=== PATIENT | male | born 1965 | race Caucasian/White ===

== ENCOUNTER 2024-09-28 09:44 | Emergency (ER) | payer OTHER, SELFPAY ==
[2024-09-28] VITALS (20 sets, daily range): BP systolic 122–176; BP diastolic 58–76; PULSE 59–60; RESP 10–19; TEMP 36.4–36.7; O2SAT 94–100; BMI 41.1
--- NOTE | 2024-09-28 09:51 | EKG_ITS ---
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
--- NOTE | 2024-09-28 09:54 | DI.RAD.S_ITS ---
PROCEDURE: XR CHEST 1V INDICATIONS: chest pain TECHNIQUE: One view of the chest was acquired. COMPARISON: None. FINDINGS: Surgical changes and devices: Left pacemaker with the leads terminating in the projection of the right atrium and coronary sinus. Partially identified cervical fusion hardware. Lungs and pleura: Lungs are clear. No pleural effusions or pneumothorax. Mediastinum: Mediastinal contours appear normal. Heart size is normal. Bones and chest wall: No suspicious bony lesions. Overlying soft tissues appear unremarkable. IMPRESSION: No acute cardiothoracic process. Dictated by: Randy Morejon M.D. on 09/28/2024 at 9:41 Approved by: Randy Morejon M.D. on 09/28/2024 at 9:41
[2024-09-28] MEDS: ASPIRIN 81 MG CHEW TAB 324 MG PO (10:13)
[2024-09-28 10:14] LABS: Add Manual Diff / Slide Review NO; Basophils Absolute Auto 0 /uL (0-100); Basophils Percent Auto 0.7 % (0-2); Eosinophils Absolute Auto 100 /uL (0-450); Hematocrit 40.7 % (41-53); Hemoglobin 13.8 g/dL (13.5-17.5); Lymphocytes Absolute Auto 1100 /uL (1100-4500); Lymphocytes Percent Auto 21.2 % (25-40); Mean Corpuscular HGB Conc 33.8 % (30-36); Mean Corpuscular Hemoglobin 30.4 PG (26-34); Mean Corpuscular Volume 89.7 fL (80-100); Monocytes Absolute Auto 400 /uL (0-900); Monocytes Percent Auto 7.3 % (3-14); Neutrophils Absolute Auto 3700 /uL (1500-7000); Neutrophils Percent Auto 69.8 % (50-75); Platelet Count 197 X10^3/uL (150-400); Red Blood Cell Count 4.54 X10^6/uL (4.5-5.9); Red Cell Distribution Width 14.3 % (11.6-14.8); White Blood Cell Count 5.3 X10^3/uL (4.5-11.0)
[2024-09-28] MEDS: MORPHINE 4 MG/ML INJ IV ×3 (10:37→16:07)
[2024-09-28 10:38] LABS: Alanine Aminotransferase 28 IU/L (<50); Albumin 4.5 g/dL (3.5-5.0); Albumin Globulin Ratio 1.5 (1.0-2.8); Alkaline Phosphatase 73 U/L (38-126); Aspartate Aminotransferase 36 IU/L (17-59); BUN Creatinine Ratio 23.6 (6-22); Bilirubin Total 0.7 mg/dL (0.2-1.3); Blood Urea Nitrogen 26 mg/dL (9-20); Calcium 9.4 mg/dL (8.4-10.2); Carbon Dioxide 20 mmol/L (22-32); Chloride 107 mmol/L (98-107); Creatine Kinase 139 U/L (55-170); Estimated Glomerular Filt Rate > 60 mL/min (>60); Glucose 108 mg/dL (80-110); HEMOLYSIS 26 (0-50); Lipase 47 U/L (23-300); Potassium 5.2 mmol/L (3.4-5.1); Sodium 137 mmol/L (137-145); Total Protein 7.5 g/dL (6.3-8.2)
[2024-09-28 10:48] LABS: Troponin I < 0.012 ng/mL (0.01-0.034)
--- NOTE | 2024-09-28 11:41 | EKG_ITS ---
[address] [address] Test Date: 2024-09-28 Pat Name: Jeremiah Francisco Department: Room: Gender: Male Intermission Coordinator: CHANTELL : 1965 Requested By: Order Number: [id number] Reading MD: Jeremiah Heller MD Measurements Intervals [place] Rate: 60 P: IN: 276 QRS: -78 QRSD: 118 T: 44 QT: 454 QTc: 454 Interpretive Statements Atrial-paced rhythm with prolonged AV conduction Left anterior fascicular block Possible Anterior infarct , age undetermined Electronically Signed On 09-28-2024 15:04:15 PDT by Jeremiah Heller MD
--- NOTE | 2024-09-28 11:43 | PC.NURSE ---
pt reports CP at this time. repeat EKG obtained. made aware. BP 141/67 and HR 60 paced
--- NOTE | 2024-09-28 12:25 | DI.CT.S_ITS ---
PROCEDURE: CT ANGIO CHEST PE PROTOCOL INDICATIONS: left chest shoulder pain TECHNIQUE: After the administration of intravenous contrast, 2 mm thick sections acquired from the pulmonary apices to the posterior costophrenic angles. 3-dimensional maximum intensity projection (MIP) coronal and sagittal reformats were then acquired through the thorax. For radiation dose reduction, the following was used: automated exposure control, adjustment of mA and/or kV according to patient size. COMPARISON: [facility], CR, XR CHEST 1V, 09/28/2024, 9:55. FINDINGS: Image quality: Diagnostic. Thyroid: Within normal limits. Cardiac: Cardiomegaly. No pericardial effusion. Left pacemaker with the leads terminating in the right atrium right ventricle. RV: LV ratio within normal limits. No bowing of the interventricular septum. No reflux of contrast into the hepatic veins. Left ventricular hypertrophy. Aorta: Thoracic aortic diameter within normal limits. Pulmonary Artery: Main pulmonary artery diameter within normal limits. No filling defect in the pulmonary arteries to the proximal interlobar level. Further distal evaluation is limited due to suboptimal arterial opacification. Lungs: No focal lung consolidation. Pleura: No pneumothorax or pleural effusion. Airways: The trachea and mainstem bronchi are patent. Lymph Nodes: No mediastinal, hilar, or axillary lymphadenopathy. Esophagus: Within normal limits. Bones: Diffuse idiopathic skeletal hyperostosis of the thoracic spine. C6-C7 ACDF. Chronic left posterior 11th and 12th rib fractures. Upper Abdomen: Within normal limits. IMPRESSION: 1. No CT evidence of pulmonary embolism to the proximal interlobar level. 2. Cardiomegaly with left ventricular hypertrophy. Dictated by: Randy Morejon M.D. on 09/28/2024 at 12:45 Approved by: Randy Morejon M.D. on 09/28/2024 at 12:49
[2024-09-28 13:03] LABS: Troponin I < 0.012 ng/mL (0.01-0.034)
--- NOTE | 2024-09-28 14:33 | ED.ARRPALP ---
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 Iraheta known as his primary turnaround engineer. About 2 years ago had AICD placed, subsequent to that placement he had a V-tach event in the AICD device apparently had failed, but was resuscitated by nearby paramedics successfully, subsequent to that event the AICD settings were adjusted, no subsequent shocking events known. He woke this morning with left anterior chest discomfort that radiated to his left upper shoulder. No shocking sensation nor electrical like sensation from his AICD advice. No recent cough, shortness of breath, fevers or chills. No abdominal discomfort, nausea, vomiting. No associated diaphoresis. No focal weakness to face arm or leg. No focal numbness to face arm or leg. No change in medications recalled. No history of blood clots to legs or lungs. However he has also been taking Xarelto chronic anticoagulation for many years. Denies black or red stools. Related Data Previous Rx's Medication Instructions Recorded hydrocodone 5 mg-acetaminophen 325 1 tab PO Q6H PRN pain #14 tabs 09/28/24 mg tablet Allergies Allergy/AdvReac Type Severity Reaction Status Date / Time fentanyl AdvReac Agitated Verified 09/28/24 10:00 Patient History Social History Smoking Status: Never smoker Smoking Status: Never smoker Exam Narrative Exam Narrative: GENERAL: Well-developed patient, in mild distress. HEAD: Atraumatic. Normocephalic. EYES: Pupils equal round and reactive. Extraocular motions intact. No scleral icterus. No injection or drainage. ENT: Nose without bleeding, purulent drainage. Throat without erythema, tonsillar hypertrophy or exudate. Airway patent. NECK: Trachea midline. Non tender CARDIOVASCULAR: Regular rate and rhythm without murmurs, gallops, or rubs. RESPIRATORY: Clear to auscultation. Breath sounds equal bilaterally. No wheezes, rales, or rhonchi. Left anterior upper chest AICD site, well-healed scar, no crepitance or redness or swelling. No tenderness to left anterior chest. GASTROINTESTINAL: Abdomen soft, non-tender, nondistended. EXTREMITIES: No edema or joint tenderness. BACK: Nontender without deformity or crepitance. No flank tenderness. NEURO: AOx3. Motor functions grossly nonfocal SKIN: No rash or erythema of visible areas Initial Vital Signs Initial Vital Signs: Vital Signs Temperature 98.1 F 09/28/24 09:57 Pulse Rate 60 09/28/24 09:57 Respiratory Rate 19 09/28/24 09:57 Blood Pressure 171/73 H 09/28/24 09:57 Pulse Oximetry 100 09/28/24 09:57 Oxygen Delivery Method Room Air 09/28/24 09:57 Course Orders Ordered: ED Orders 09/28/24 12:25 CT angio chest PE protocol Stat 09/28/24 12:29 Trop I [Troponin I] Stat 09/28/24 13:25 EKG-12 Lead Stat 09/28/24 16:42 Potassium Stat Discontinued Medications Aspirin (Aspirin 81 Mg Chew Tab) 324 mg PO NOW ONE Stop: 09/28/24 09:55 Last Admin: 09/28/24 10:13 Dose: 324 mg Documented By: POPPY Ketorolac Tromethamine (Ketorolac 30 Mg/Ml Vial) 15 mg IV NOW ONE Stop: 09/28/24 15:55 Last Admin: 09/28/24 16:06 Dose: 15 mg Documented By: ANUJA Morphine Sulfate (Morphine 4 Mg/Ml Inj) 4 mg IV NOW PRN PRN Reason: Pain, Moderate (4-6) Last Admin: 09/28/24 10:37 Dose: 4 mg Documented By: POPPY Morphine Sulfate (Morphine 4 Mg/Ml Inj) 4 mg IV NOW PRN PRN Reason: Pain, Moderate (4-6) Last Admin: 09/28/24 12:36 Dose: 4 mg Documented By: POPPY Morphine Sulfate (Morphine 4 Mg/Ml Inj) 4 mg IV NOW ONE Stop: 09/28/24 15:55 Last Admin: 09/28/24 16:07 Dose: 4 mg Documented By: ANUJA Vital Signs Vital signs: Vital Signs - 8 hr 09/28/24 13:00 09/28/24 13:30 09/28/24 14:00 Temperature Pulse Rate 60 60 60 Respiratory Rate 14 14 14 Blood Pressure Pulse Oximetry 98 98 97 Oxygen Delivery Method 09/28/24 14:30 09/28/24 15:00 09/28/24 15:30 Temperature Pulse Rate 59 L 60 60 Respiratory Rate 16 12 15 Blood Pressure Pulse Oximetry 98 98 97 Oxygen Delivery Method 09/28/24 16:00 09/28/24 16:05 09/28/24 16:05 Temperature Pulse Rate 60 60 Respiratory Rate 17 14 Blood Pressure 176/76 H Pulse Oximetry 97 97 Oxygen Delivery Method 09/28/24 16:30 09/28/24 16:31 09/28/24 16:31 Temperature Pulse Rate 60 60 Respiratory Rate 12 10 L Blood Pressure 138/63 Pulse Oximetry 97 97 Oxygen Delivery Method 09/28/24 17:00 09/28/24 17:00 09/28/24 17:30 Temperature 97.6 F Pulse Rate 59 L 60 Respiratory Rate 10 L 12 Blood Pressure 144/71 H Pulse Oximetry 96 98 Oxygen Delivery Method Room Air 09/28/24 17:30 09/28/24 18:00 09/28/24 18:00 Temperature 97.9 F Pulse Rate 60 Respiratory Rate 10 L Blood Pressure 142/67 H 122/58 L Pulse Oximetry 97 Oxygen Delivery Method MDM - Arrhythmia/Palpitations Lab Data Attestation: I reviewed the patient's lab results. Lab results narrative: White blood cell count 5300, hemoglobin 13.8, platelets 197,000. Glucose 108. BUN 26 with creatinine 1.1, sodium 137, potassium 5.2, serum CO2 20. Liver functions unremarkable. Troponin negative/unmeasurable x2 sets. 09/28/24 10:07 09/28/24 16:42 Labs: Lab Results 09/28/24 09/28/24 09/28/24 Range/Units 10:07 12:29 16:42 WBC 5.3 (4.5-11.0) X10^3/uL RBC 4.54 (4.5-5.9) X10^6/uL Hgb 13.8 (13.5-17.5) g/dL Hct 40.7 L (41-53) % MCV 89.7 (80-100) fL MCH 30.4 (26-34) PG MCHC 33.8 (30-36) % RDW 14.3 (11.6-14.8) % Plt Count 197 (150-400) X10^3/uL Neut % (Auto) 69.8 (50-75) % Lymph % (Auto) 21.2 L (25-40) % [place] % (Auto) 7.3 (3-14) % Eos % (Auto) 1.0 L (2-4) % Baso % (Auto) 0.7 (0-2) % Neut # (Auto) 3700 (6889-2652) /uL Lymph # (Auto) 1100 (9862-2618) /uL [place] # (Auto) 400 (0-900) /uL Eos # (Auto) 100 (0-450) /uL Baso # (Auto) 0 (0-100) /uL Sodium 137 (137-145) mmol/L Potassium 5.2 H 4.8 (3.4-5.1) mmol/L Chloride 107 (98-107) mmol/L Carbon Dioxide 20 L (22-32) mmol/L BUN 26 H (9-20) mg/dL Creatinine 1.10 (0.66-1.25) mg/dL Estimated GFR > 60 (>60) mL/min BUN/Creatinine Ratio 23.6 H (6-22) Glucose 108 (80-110) mg/dL Calcium 9.4 (8.4-10.2) mg/dL Total Bilirubin 0.7 (0.2-1.3) mg/dL AST 36 (17-59) IU/L ALT 28 (<50) IU/L Alkaline Phosphatase 73 (38-126) U/L Total Creatine Kinase 139 (55-170) U/L Troponin I < 0.012 < 0.012 (0.01-0.034) ng/mL Total Protein 7.5 (6.3-8.2) g/dL Albumin 4.5 (3.5-5.0) g/dL Globulin 3.0 (1.7-4.1) g/dL Albumin/Globulin Ratio 1.5 (1.0-2.8) Lipase 47 (23-300) U/L Imaging Data CT angiogram chest PE protocol: Radiologist's Impresson: [address] [address] [address] Scan Report Signed Patient: Jeremiah Francisco MR#: [id number] : 1965 Acct:[id number] Age/Sex: 59 / M Date of Service: 09/28/24 Loc: ED Accession Number: [id number] Procedure: CT angio chest PE protocol Ordering Provider: Greg Montes De Oca MD PROCEDURE: CT ANGIO CHEST PE PROTOCOL INDICATIONS: left chest shoulder pain TECHNIQUE: After the administration of intravenous contrast, 2 mm thick sections acquired from the pulmonary apices to the posterior costophrenic angles. 3-dimensional maximum intensity projection (MIP) coronal and sagittal reformats were then acquired through the thorax. For radiation dose reduction, the following was used: automated exposure control, adjustment of mA and/or kV according to patient size. COMPARISON: [facility], CR, XR CHEST 1V, 09/28/2024, 9:55. FINDINGS: Image quality: Diagnostic. Thyroid: Within normal limits. Cardiac: Cardiomegaly. No pericardial effusion. Left pacemaker with the leads terminating in the right atrium right ventricle. RV: LV ratio within normal limits. No bowing of the interventricular septum. No reflux of contrast into the hepatic veins. Left ventricular hypertrophy. Aorta: Thoracic aortic diameter within normal limits. Pulmonary Artery: Main pulmonary artery diameter within normal limits. No filling defect in the pulmonary arteries to the proximal interlobar level. Further distal evaluation is limited due to suboptimal arterial opacification. Lungs: No focal lung consolidation. Pleura: No pneumothorax or pleural effusion. Airways: The trachea and mainstem bronchi are patent. Lymph Nodes: No mediastinal, hilar, or axillary lymphadenopathy. Esophagus: Within normal limits. Bones: Diffuse idiopathic skeletal hyperostosis of the thoracic spine. C6-C7 ACDF. Chronic left posterior 11th and 12th rib fractures. Upper Abdomen: Within normal limits. IMPRESSION: 1. No CT evidence of pulmonary embolism to the proximal interlobar level. 2. Cardiomegaly with left ventricular hypertrophy. Dictated by: Randy Morejon M.D. on 09/28/2024 at 12:45 Approved by: Randy Morejon M.D. on 09/28/2024 at 12:49 ECG Data Attestation: I personally reviewed and interpreted this ECG as follows: Interpretation: 0951, atrial paced rhythm with prolonged AV conduction, ventricular rate 60, low voltage. [place] 274, QRS 102, QTC 416. 1141, atrial paced rhythm with prolonged AV conduction, left anterior fascicular block. Ventricular rate 60. W[place] 276, QRS 118, QTC 454. MDM Narrative Medical decision making narrative: 59-year-old male with cardiomyopathy and reported ejection fraction 15% felt to be due to sarcoidosis, AICD placed 2 years ago had VF arrest in failure of the AICD, successful resuscitation, apparently the same AICD was adjusted, followed by cardiology at [facility]. Having chest discomfort since this morning. EKG shows paced rhythm. Troponin x2 sets negative/unmeasurable. Patient having chest discomfort, no response to serial IV morphine doses, IV Toradol. Chest x-ray no acute changes. Pacer interrogation, no acute events per phone call Given.to. Paged his cardiology team at [place], no callback. Patient stated he has been treated with Hydrocodone for this pain in the past, Rx sent for Hydrocodone 5/325, #7 tabs. Advised followup with his [place] turnaround engineer Discharge Plan Departure Patient Disposition: Home Clinical Impression: Chest pain, History of cardiomyopathy Activity Restrictions/Additional Instructions: History of cardiomyopathy with low ejection fraction, history of AICD defibrillator placement, history of prior ventricular fibrillation resuscitation and and subsequent adjustment of AICD. Now with chest discomfort since this morning. EKG shows paced rhythm. Serial blood tests not suggestive of heart attack at this time. Chest x-ray without obvious acute changes, enlarged heart noted, pacemaker noted. CT angiogram of the chest showed no blood clots to the lungs or acute changes. We gave a number of medications, including various pain medications. [employer] AICD was interrogated, no acute events noted per phone call with the interrogation satellite dish technician, good battery life reserves. We attempted to call your cardiology team at [facility], had no call back so far. You wanted to go home. Hydrocodone/acetaminophen prescribed for your discharge, as has been done in the past when there has been no other causes of your chest discomfort reportedly found. Follow up with your [facility] cardiology team. Call for an appointment on Sunday tomorrow. Return earlier to nearest emergency department for any change worsening symptoms or any concerns prior. Prescriptions: New hydrocodone-acetaminophen 5-325 mg tablet 1 tab PO Q6H PRN (Reason: pain) Qty: 14 0RF Stand Alone Forms: Patient Portal/API/Survey, Work Release Note
[2024-09-28] MEDS: KETOROLAC 30 MG/ML VIAL 15 MG IV (16:06)
[2024-09-28 16:54] LABS: HEMOLYSIS < 15 (0-50); Potassium 4.8 mmol/L (3.4-5.1)
--- NOTE | 2024-09-28 17:33 | PC.NURSE ---
Patients pacemaker interrogated today in ER with Report available - printed out from interrogation. Provider given physical copy of interrogation report but Provider requests a phone call with pacemaker escrow representative from [employer] patients pacemaker interrogation done in ER today instead of printed report. Printed report placed back in patients chart. Called [employer]/Cardiac/Electrophysiology Device Support : Cardiac Rhythm and [place]? Support [phone] option #1 to request local rep - to review report and speak with physician. no answer, long wait. Called a second time and able to reach escrow representative support line to request escrow representative speak with provider. Consult Tech/Device support will call back ER and speak with provider.
== END 2024-09-28 18:30 | disposition home or self-care (01) ==
PROVIDERS: Emergency Provider Emergency Medicine
DX: R07.9 Chest pain, unspecified (principal); Z86.79 Personal history of other diseases of the circulatory system; I44.4 Left anterior fascicular block; M25.512 Pain in left shoulder
CPT/HCPCS: 36415; 71045; 71275; 80053; 82550; 83690; 84132; 84484; 85025; 93005; 93010; 96374; 96375; 96376; 99284; J1885; J2270; Q9967

== ENCOUNTER 2025-05-03 08:43 | Emergency (ER) | payer OTHER, SELFPAY ==
[2025-05-03 08:49] VITALS: BP 201/84
[2025-05-03 08:50] VITALS: BP 201/84; PULSE 60; PULSE 62; RESP 18; TEMP 36.6; O2SAT 97; BMI 39.3
--- NOTE | 2025-05-03 08:56 | ED.DENTAL ---
HPI - Dental/Oral General Chief complaint: Dental/Oral Stated complaint: Mouth -front upper gum swollen/painful Time Seen by Provider: 05/03/25 08:56 Source: patient Limitations: no limitations History of Present Illness HPI Narrative: Patient is a 60-year-old male with history of hypertension presenting with dental pain. Patient states that he initially noticed dental injury over a week ago however has had increasing gum swelling and pain over the course of that week. He denies any fevers, chills, has noted no discharge from the area. Patient does state that he has attempted to schedule an appointment with his dentist and has been unable to be seen. Patient denies any pain or swelling in his lower mouth or throat. He has been swallowing without issue although endorses that chewing with his teeth is quite painful. Patient without chest pain, neck pain. MD Complaint: tooth pain and tooth injury Severity: moderate Related Data Previous Rx's ?Medication ?Instructions ?Recorded hydrocodone 5 mg-acetaminophen 325 1 tab PO Q6H PRN pain #14 tabs 09/28/24 mg tablet amoxicillin 875 mg-potassium 1 tab PO Q12H #14 tabs 05/03/25 clavulanate 125 mg tablet chlorhexidine gluconate 0.12 % 15 ml buccal BID #1,893 mL 05/03/25 mouthwash (Peridex) oxycodone 5 mg capsule 5 mg PO Q8H PRN pain #10 caps 05/03/25 Allergies Allergy/AdvReac Type Severity Reaction Status Date / Time fentanyl AdvReac Agitated Verified 05/03/25 08:51 Review of Systems Review of Systems ROS Unobtainable: All systems reviewed & are unremarkable except as noted in HPI and below Constitutional Constitutional: Denies chills and Denies fever(s) Eyes Eyes: Denies diplopia ENT Ears, Nose, Mouth, and Throat: Reports dental pain, Reports mouth lesions, Reports mouth pain, Denies odynophagia, Reports sinus pain, Denies sore throat and Denies throat swelling Cardiovascular Cardiovascular: Reports irregular heart rhythm and Denies dyspnea Respiratory Respiratory: Denies dyspnea Gastrointestinal Gastrointestinal: Denies odynophagia Allergic/Immunologic Allergic/Immunologic: Denies throat swelling Patient History Social History Smoking Status: Former smoker Exam Narrative Exam Narrative: GENERAL: in no distress, not toxic not dyspneic HEAD: Normocephalic. EYES: Pupils equal round ENT: Mucous membranes moist. NECK: Trachea midline. CARDIOVASCULAR: Regular rate and rhythm RESPIRATORY: Clear to auscultation. Breath sounds equal bilaterally. No wheezes, rales, or rhonchi. GASTROINTESTINAL: Abdomen soft, non-tender EXTREMITIES: No gross deformities. BACK: No flank tenderness. NEURO: AOx4. Clear speech SKIN: Warm and dry PSYCH: Not anxious, is cooperative Initial Vital Signs Initial Vital Signs: Vital Signs Blood Pressure 201/84 H 05/03/25 08:49 Const General: cooperative HENMT Face and sinus: sinus tenderness frontal Teeth and gingiva: abnormal tooth or associated gingiva upper right lateral incisor , caries, gingiva abnormal edematous and tender and poor dentition Eyes EOM: EOM intact bilaterally Course Orders Ordered: Discontinued Medications Amoxicillin/Clavulanate Potassium (Amoxicillin/Clav 875/125 Mg) 1 tab PO NOW ONE Stop: 05/03/25 08:59 Last Admin: 05/03/25 09:13 Dose: 1 tab Documented By: MARISA Chlorhexidine Gluconate (Chlorhexidine Gluconate 15 Ml Cup) 15 ml PO NOW ONE Stop: 05/03/25 08:59 Last Admin: 05/03/25 09:13 Dose: 15 ml Documented By: MARISA Morphine Sulfate (Morphine 4 Mg/Ml Inj) 4 mg IV NOW ONE Stop: 05/03/25 09:26 Last Admin: 05/03/25 09:36 Dose: 4 mg Documented By: MARISA Vital Signs Vital signs: Vital Signs - 8 hr 05/03/25 08:50 Temperature 97.8 F Pulse Rate 62 Respiratory Rate 18 Blood Pressure 201/84 H Pulse Oximetry 97 Oxygen Delivery Method Room Air MDM - Dental/Oral Differential Diagnosis Differential diagnosis: Likely gingival abscess, dental caries, dental abscess, fracture of tooth and other (pulpitis, necrotizing ulcerative gingivitis, abad's) Medical Records Attestation: I reviewed the patient's medical records. Lab Data Attestation: I reviewed the patient's lab results. 05/03/25 09:05 05/03/25 09:05 Labs: Lab Results 05/03/25 Range/Units 09:05 WBC 6.7 (4.5-11.0) X10^3/uL RBC 4.48 L (4.5-5.9) X10^6/uL Hgb 13.4 L (13.5-17.5) g/dL Hct 39.9 L (41-53) % MCV 89.2 (80-100) fL MCH 30.0 (26-34) PG MCHC 33.6 (30-36) % RDW 13.5 (11.6-14.8) % Plt Count 212 (150-400) X10^3/uL Neut % (Auto) 71.5 (50-75) % Lymph % (Auto) 18.6 L (25-40) % [place] % (Auto) 8.7 (3-14) % Eos % (Auto) 0.9 L (2-4) % Baso % (Auto) 0.3 (0-2) % Neut # (Auto) 4800 (7131-8731) /uL Lymph # (Auto) 1300 (6110-2024) /uL [place] # (Auto) 600 (0-900) /uL Eos # (Auto) 100 (0-450) /uL Baso # (Auto) 0 (0-100) /uL ESR 13 (0-15) MM/HR Sodium 138 (137-145) mmol/L Potassium 4.9 (3.4-5.1) mmol/L Chloride 106 (98-107) mmol/L Carbon Dioxide 23 (22-32) mmol/L BUN 19 (9-20) mg/dL Creatinine 0.96 (0.66-1.25) mg/dL Estimated GFR > 60 (>60) mL/min BUN/Creatinine Ratio 19.8 (6-22) Glucose 115 H (70-99) mg/dL Calcium 9.0 (8.4-10.2) mg/dL Magnesium 2.1 (1.6-2.3) mg/dL C-Reactive Protein < 0.5 (<1.0) mg/dL Procalcitonin 0.052 (<0.5) ng/mL ECG Data Attestation: I personally reviewed and interpreted this ECG as follows: Interpretation: EKG demonstrating atrially paced rhythm at a rate of 60, QRS 112 Pacemaker function: normal pacer function MDM Narrative Medical decision making narrative: History and exam as above. Patient presenting with right superior gingival pain and swelling. Most consistent with reversible versus irreversible pulpitis secondary to dental caries and fracture. Less likely to represent acute necrotizing ulcerative gingivitis, without submandibular swelling suggestive of Abad's angina. In the setting of patient's concurrent palpitations, we will plan for further evaluation including EKG, CBC, BMP, magnesium, and inflammatory markers. Discharge Plan Departure Patient Disposition: Home Clinical Impression: Acute pulpitis Hypertension Qualifiers: Hypertension type: primary hypertension Qualified Code(s): I10 - Essential (primary) hypertension Instructions: DI for Dental Pain Activity Restrictions/Additional Instructions: You were seen in the emergency department for your dental pain. Evaluation here included examination, lab work, and EKG. We are overall reassured and do not see any evidence of an acute abnormality with your pacemaker or labs to suggest need for admission to the hospital. We are prescribing you oral wash and antibiotics for further management however it is very important that you are seen by an oral surgeon or dentist in the next few days for re-evaluation and interventional management as needed. If you develop worsening pain, swelling, fevers or chills, difficulty swallowing, other symptoms that are concerning to you, please return to the emergency department for further evaluation. Prescriptions: New chlorhexidine gluconate [Peridex] 0.12 % mouthwash 15 ml buccal BID Qty: 1893 0RF amoxicillin-pot clavulanate 875-125 mg tablet 1 tab PO Q12H Qty: 14 0RF oxycodone 5 mg capsule 5 mg PO Q8H PRN (Reason: pain) Qty: 10 0RF No Action hydrocodone-acetaminophen 5-325 mg tablet 1 tab PO Q6H PRN (Reason: pain) Qty: 14 0RF Referrals: [facility] [Provider Group] Stand Alone Forms: Patient Portal/API
--- NOTE | 2025-05-03 08:58 | EKG_ITS ---
[facility] [address] [place] [address] Test Date: 2025-05-03 Pat Name: Jeremiah Francisco Department: 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
[2025-05-03 09:00] VITALS: BP 157/56; PULSE 60; O2SAT 96
[2025-05-03] MEDS: AMOXICILLIN/CLAV 875/125 MG 1 TAB PO (09:13)
[2025-05-03] MEDS: CHLORHEXIDINE GLUCONATE 15 ML CUP PO (09:13)
[2025-05-03 09:16] LABS: Add Manual Diff / Slide Review NO; Hematocrit 39.9 % (41-53); Hemoglobin 13.4 g/dL (13.5-17.5); Lymphocytes Absolute Auto 1300 /uL (1100-4500); Mean Corpuscular HGB Conc 33.6 % (30-36); Mean Corpuscular Hemoglobin 30.0 PG (26-34); Mean Corpuscular Volume 89.2 fL (80-100); Platelet Count 212 X10^3/uL (150-400)
[2025-05-03 09:28] LABS: Blood Urea Nitrogen 19 mg/dL (9-20); Calcium 9.0 mg/dL (8.4-10.2); Carbon Dioxide 23 mmol/L (22-32); Chloride 106 mmol/L (98-107); Estimated Glomerular Filt Rate > 60 mL/min (>60); Glucose 115 mg/dL (70-99); HEMOLYSIS < 15 (0-50); Potassium 4.9 mmol/L (3.4-5.1); Sodium 138 mmol/L (137-145)
[2025-05-03 09:30] VITALS: BP 166/74; PULSE 60; RESP 16; O2SAT 96
[2025-05-03 09:31] LABS: Magnesium 2.1 mg/dL (1.6-2.3)
[2025-05-03] MEDS: MORPHINE 4 MG/ML INJ IV (09:36)
[2025-05-03 09:45] LABS: Procalcitonin 0.052 ng/mL (<0.5)
[2025-05-03 10:00] VITALS: BP 166/72; PULSE 60; RESP 11; O2SAT 96
== END 2025-05-03 10:41 | disposition home or self-care (01) ==
PROVIDERS: Emergency Provider Student in an Organized Health Care Education/Training Program
DX: K04.01 Reversible pulpitis (principal); I10 Essential (primary) hypertension; Z87.891 Personal history of nicotine dependence
CPT/HCPCS: 80048; 83735; 84145; 85025; 85651; 86140; 93005; 96374; 99284; J2272